=== PATIENT | male | born 1995 | race African-American/Black ===

== ENCOUNTER 2018-06-15 15:44 | Emergency (ER) | payer MEDICAID, OTHER ==
[2018-06-15] MEDS ORDERED: NORMAL SALINE 1000 ML 1,000 ML IV ONE (16:04)
[2018-06-15] MEDS ORDERED: CEFTRIAXONE 1 GM/D5W RTU 1 GM/50 ML RTUPB IV ONE (16:06)
[2018-06-15] MEDS ORDERED: METHYLPREDNISOLONE INJ 125 MG/2 ML SDV IV ONE (16:06)
--- NOTE | 2018-06-15 16:14 | ER Document Report ---
ED Medical Screen (RME) - General Chief Complaint: Sore Throat Stated Complaint: SORE THROAT Time Seen by Provider: 06/15/18 16:03 Primary Care Provider: EVELIA WEI [Primary Care Provider] - Follow up as needed Mode of Arrival: Ambulatory Information source: Patient Notes: 22-year-old prisoner seen in the ED today for severe sore throat with muffled voice swelling to bilateral neck and difficulty swallowing. He states that he had one tonsil punctured by himself a while back due to being swollen and then it had to be removed. He states he has had a sore throat for 5 days. He has accompanied by a deputy. Patient is alert and oriented states his pain is a 5 out of 5 he is on penicillin. I had Dr. Pichardo look at him also. He recommended Solu-Medrol and Rocephin IV as well as the soft tissue neck CT with IV contrast CBC chemistry is all been ordered. Patient has been placed in room 10 and the nurse has been informed that the patient needs Solu-Medrol stat. I have greeted and performed a rapid initial assessment of this patient. A comprehensive ED assessment and evaluation of the patient, analysis of test results and completion of medical decision making process will be conducted by an additional ED providers. - Related Data Allergies/Adverse Reactions: No Known Allergies Allergy (Verified 06/15/18 15:44) Past Medical History - Social History Frequency of alcohol use: None Drug Abuse: None Renal/ Medical History: Denies: Hx Peritoneal Dialysis - Immunizations Immunizations up to date: Yes Hx Diphtheria, Pertussis, Tetanus Vaccination: Yes Physical Exam - Vital signs Vitals: Temp Pulse Resp BP Pulse Ox 99.9 F 79 16 148/89 H 98 06/15/18 15:51 06/15/18 15:51 06/15/18 15:51 06/15/18 15:51 06/15/18 15:51 Course - Vital Signs Vital signs: Temp Pulse Resp BP Pulse Ox 99.9 F 79 16 148/89 H 98 06/15/18 15:51 06/15/18 15:51 06/15/18 15:51 06/15/18 15:51 06/15/18 15:51 Doctor's Discharge - Discharge Referrals: EVELIA WEI [Primary Care Provider] - Follow up as needed
[2018-06-15] MEDS ORDERED: PIPERACILLIN/TAZOBACTAM 3.375 GM VIAL IV ONE (16:27)
[2018-06-15] MEDS ORDERED: DEXAMETHASONE SOD PHOS INJ 10 MG/1 ML VIAL IV ONE (16:27)
--- NOTE | 2018-06-15 16:43 | ER Document Report ---
ED ENT - General Chief Complaint: Sore Throat Stated Complaint: SORE THROAT Time Seen by Provider: 06/15/18 16:03 Primary Care Provider: EVELIA WEI [NO LOCAL MD] - Follow up as needed Mode of Arrival: Ambulatory Information source: Patient Notes: Patient is a 22-year-old male who started to have some sore throat and difficulty swallowing around 5 days ago. Patient is currently in senior living and was prescribed penicillin by the provider at that location. Patient started to have some difficulty speaking and spitting secretions. Temperature 101. No vomiting. Patient denies any neck stiffness. He denies any headache, cough, chest pain, shortness of breath. - HPI Patient complains to provider of: Other - See above Onset: Other - See above Onset/Duration: Gradual Quality of pain: Achy Severity: Mild Pain Level: Denies Location of pain: Throat Associated symptoms: Other - See above Similar symptoms previously: No Recently seen / treated by doctor: No - Related Data Allergies/Adverse Reactions: No Known Allergies Allergy (Verified 06/15/18 15:44) Past Medical History - General Information source: Patient - Social History Smoking Status: Former Smoker Frequency of alcohol use: None Drug Abuse: None Family History: Reviewed & Not Pertinent Patient has suicidal ideation: No Patient has homicidal ideation: No Renal/ Medical History: Denies: Hx Peritoneal Dialysis - Immunizations Immunizations up to date: Yes Hx Diphtheria, Pertussis, Tetanus Vaccination: Yes Review of Systems - Review of Systems Constitutional: Fever EENT: denies: Eye discharge, Nose congestion, Nose discharge Cardiovascular: denies: Chest pain, Palpitations Respiratory: denies: Short of breath Gastrointestinal: denies: Vomiting Skin: denies: Rash -: Yes All other systems reviewed and negative Physical Exam - Vital signs Vitals: Temp Pulse Resp BP Pulse Ox 99.9 F 79 16 148/89 H 98 06/15/18 15:51 06/15/18 15:51 06/15/18 15:51 06/15/18 15:51 06/15/18 15:51 Notes: Reviewed vital signs and nursing note as charted by RN. CONSTITUTIONAL: Alert and oriented and responds appropriately to questions. Patient is sitting up in no acute distress HEAD: Normocephalic; atraumatic EYES: PERRL; Conjunctivae clear, sclerae non-icteric ENT: Patient has obvious hot potato voice. Patient has what appears to be an obvious left-sided peritonsillar abscess with minimal uvular shift to the right NECK: Supple with good range of motion; non-tender; nonfluctuant anterior cervical lymphadenopathy with no induration or erythema present CARD: Regular rate and rhythm; no murmurs; symmetric distal pulses RESP: Normal chest excursion without splinting or tachypnea; breath sounds clear and equal bilaterally ABD/GI: Normal bowel sounds; non-distended; soft, non-tender BACK: The back appears normal and is non-tender to palpation EXT: Normal ROM in all joints; non-tender to palpation; no edema SKIN: No acute lesions noted NEURO: CN 2-12 intact; 5/5 bilateral upper and lower extremity strength with sensation intact to light touch PSYCH: The patient's mood and manner are appropriate. Grooming and personal hygiene are appropriate. Course - Re-evaluation Re-evalutation: 06/15/18 16:41 Given the above history and physical examination, I have ordered basic labs, Decadron, Zosyn, and have consulted ENT. He was very polite and states that he can be down to see the patient in the emergency department. He has asked for the ENT cart which we have provided. I believe the patient is protecting his airway. 06/15/18 17:59 Labs as recorded. Awaiting for ENT to arrive. Steroids and antibiotics have been provided. - Vital Signs Vital signs: Temp Pulse Resp BP Pulse Ox 99.9 F 79 16 148/89 H 98 06/15/18 15:51 06/15/18 15:51 06/15/18 15:51 06/15/18 15:51 06/15/18 15:51 - Laboratory Result Diagrams: 06/15/18 16:33 06/15/18 16:33 Laboratory results interpreted by me: 06/15/18 06/15/18 16:33 16:33 WBC 12.2 H RDW 14.1 H Absolute Neutrophils 8.8 H Total Protein 8.4 H Discharge - Discharge Clinical Impression: Peritonsillar abscess Condition: Good Disposition: HOME, SELF-CARE Additional Instructions: Come back immediately with any increased pain, difficulty breathing or swallowing, facial or neck swelling, or any other acute problems. Please follow-up with ENT for reassessment as we have discussed. Referrals: LOCAL,NO [NO LOCAL MD] - Follow up as needed MISTY MOREJON, [ASSOCIATE] - Follow up as needed
[2018-06-15 16:53] LABS: ABSOLUTE MONOCYTES (AUTO) 1.3 10^3/uL (0.1-1.4); ABSOLUTE NEUT (AUTO) 8.8 10^3/uL (1.7-8.2); BASOPHILS % (AUTO) 0.2 % (0-2); EOSINOPHILS % (AUTO) 0.2 % (0-6); HEMATOCRIT 43.5 % (37.9-51.0); HEMOGLOBIN 14.5 g/dL (13.5-17.0); LYMPHOCYTES % (AUTO) 16.4 % (13-45); MEAN CORPUSCULAR HEMOGLOBIN 27.6 pg (27.0-33.4); MEAN CORPUSCULAR HGB CONC 33.3 g/dL (32.0-36.0); MEAN CORPUSCULAR VOLUME 83 fl (80-97); PLATELET COUNT 185 10^3/uL (150-450); RED BLOOD COUNT 5.25 10^6/uL (4.35-5.55); RED CELL DISTRIBUTION WIDTH 14.1 % (11.5-14.0); SEGMENTED NEUTROPHILS % (AUTO) 72.2 % (42-78); TOTAL CELLS COUNTED % (AUTO) 100 %; WHITE BLOOD COUNT 12.2 10^3/uL (4.0-10.5)
[2018-06-15 17:28] LABS: ALANINE AMINOTRANSFERASE 28 U/L (21-72); ALBUMIN 4.6 g/dL (3.5-5.0); ALKALINE PHOSPHATASE 106 U/L (38-126); ANION GAP 9 (5-19); ASPARTATE AMINO TRANSFERASE 27 U/L (17-59); BILIRUBIN,DIRECT 0.3 mg/dL (0.0-0.4); BILIRUBIN,TOTAL 0.7 mg/dL (0.2-1.3); BLOOD UREA NITROGEN 12 mg/dL (7-20); CALCIUM 9.6 mg/dL (8.4-10.2); CARBON DIOXIDE 30 mmol/L (22-30); CHLORIDE 104 mmol/L (98-107); GLUCOSE 92 mg/dL (75-110); POTASSIUM 4.2 mmol/L (3.6-5.0); SODIUM 143.3 mmol/L (137-145); TOTAL PROTEIN 8.4 g/dL (6.3-8.2)
[2018-06-15] MEDS ORDERED: LIDOCAINE 1%/EPINEPHRINE INJ 20 ML VIAL ONE (20:15)
[2018-06-15] MEDS ORDERED: MORPHINE SULFATE 10 MG/ML INJ IV ONE (20:50)
[2018-06-15 21:28] VITALS: BP 163/98
--- NOTE | 2018-06-19 11:13 | OPERATIVE REPORT E ---
ENT INPATIENT/ER CONSULTATION DICTATION PART-2 NAME: DEVANTE RICHMOND : 1995 AGE: 22Y DATE OF SURGERY: ROOM: SURGEON: MISTY MOREJON D.O. PROCEDURE: The patient was then positioned and prepped for left IT SUPPORT MANAGER incision and drainage in the [facility] ER setting. There was local anesthetic with epinephrine that was injected around the left peritonsillar distribution. Next, an 18 gauge needle was used to aspirate with more than 5 mL of purulence aspirated. At this point there was incision performed in a curvilinear fashion and hemostats were used to mobilize tissue and copious amounts of purulence were released and suctioned. There was approximately 20 mL or more of purulence released. There was adequate hemostasis noted at the end of the procedure. The patient tolerated the procedure well. Once complete, the patient noted that his voice quality had significantly improved and he felt better overall. There were no complications. ASSESSMENT: 1. Left peritonsillar abscess. 2. Sore throat pain. 3. History of acute recurrent tonsillitis. PLAN: The patient care and procedure were all discussed in detail with the emergency room physician who was also going to prescribe Augmentin, Decadron, and Ultram for the patient for outpatient use upon discharge back to the patient's facility with security. It is recommended for the patient to follow up with ENT when he is able to further discuss tonsillectomy, which he is interested in. CONSULT TIME ELEMENT: In face to face time with the patient, 45 minutes. DICTATING PHYSICIAN: MISTY MOREJON D.O. [id number] PHY#: [id number] ID: [id number] JOB#: [id number] ACCT: [id number] cc:MISTY MOREJON D.O. > MTDD
--- NOTE | 2018-06-19 11:13 | CONSULTATION REPORT E ---
ENT INPATIENT/ER CONSULTATION DICTATION PART-1 NAME: DEVANTE RICHMOND : 1995 AGE: 22Y DATE: TO: MISTY MOREJON D.O. FROM: CAMILLE PRATT M.D. Requesting Physician CHIEF COMPLAINT: Worsening sore throat over 1 week with concern for a left peritonsillar abscess. HISTORY OF PRESENT ILLNESS: This is a 22-year-old male who is incarcerated, who was brought to the [facility] Emergency Room for worsening sore throat symptoms over a 1-week time period. The patient is with history of acute recurrent tonsillitis episodes requiring antibiotics over the years. The patient denies chronic tonsillitis/keratosis pharyngeus symptoms over the years. The patient denies history of a prior peritonsillar abscess. The patient notes significant sore throat discomfort, more on the left, over the past week and is with decreased p.o. intake. The patient denies any difficulty breathing, shortness of breath, or dyspnea on exertion. The patient is able to move his head without difficulty. He also notes his voice has become more muffled in quality. The emergency room physician was concerned for a left peritonsillar abscess process and did not feel it was necessary to perform CT neck imaging based on his clinical evaluation, and ENT consulted for definitive management. PAST MEDICAL HISTORY: Same as above. PAST SURGICAL HISTORY: Was unremarkable. MEDICATIONS: The patient received Zosyn and Decadron while in the emergency room setting, otherwise see the ER medication patient list. ALLERGIES: No known drug allergies. SOCIAL HISTORY: The patient uses tobacco, but denies drug use over the years. The patient also drinks alcohol on occasion. REVIEW OF SYSTEMS: ENT: Same as above. GI: Reviewed and noncontributory. PULMONARY: Reviewed and noncontributory. CARDIAC: Reviewed and noncontributory. NEUROLOGY: Reviewed and noncontributory. SKIN: Reviewed and noncontributory. PSYCHOSOCIAL: Reviewed and noncontributory. ENDOCRINE: Reviewed and noncontributory. ALLERGIES/IMMUNOLOGY: Reviewed and noncontributory. PHYSICAL EXAMINATION: VITAL SIGNS: Temperature 99.9 Fahrenheit, respirations 16, blood pressure 148/99, pulse ox was 98/5 on room air. GENERAL APPEARANCE: The patient was seen in the emergency room setting and was noted to be lying on an emergency room bed in an orange jumper as he is currently incarcerated. There was a security systems administrator that was present at all times. The patient was with a yellow handcuff around the left wrist, which was attached to a bed rail at all times. The patient was alert and oriented and in no apparent distress. His voice quality was muffled, but he was still able to talk reasonably well and did not appear to have any difficulty breathing. There was no stridor. HEENT: Head, normocephalic, atraumatic. Eyes, extraocular muscles intact and his conjunctivae appeared unremarkable. Ears, the ear canals were unremarkable and the tympanic membranes were clear with no middle ear effusion. Nose, nasal septal deviation with inferior turbinate hypertrophy noted. Oral cavity, oropharynx was moist and with findings consistent and concerning for a left peritonsillar abscess process. NECK: Supple with no lymphadenopathy noted. The patient has free range of motion without difficulty. HEART: Regular rate and rhythm without murmur. LUNGS: Clear to auscultation bilateral. NEUROLOGIC: Cranial nerves 2 through 12 were grossly intact. LABORATORY: White blood cell count was elevated at 12. ASSESSMENT AND PLAN: The process of peritonsillar abscess incision and drainage was discussed in detail with the patient who voiced an understanding and desired to proceed with this procedure in the emergency room setting. The patient was consented with all of the risks and complications discussed in detail, which include and are not limited to bleeding, scarring, infection, injury to blood vessels and nerves, injury to tissues inside of the mouth and oropharynx. There is possible need to repeat this procedure depending on the size and amount of purulence that is encountered and drained and the extent of the abscess that is present. There is possibility of need for additional medical and/or surgical care. The patient voiced an understanding of all that was discussed, and was in agreement, and consent was obtained. DICTATING PHYSICIAN: MISTY MOREJON D.O. [id number] PHY#: [id number] ID: [id number] JOB#: [id number] ACCT: [id number] cc:MISTY MOREJON D.O. > [facility]ITALMaría
== END 2018-06-15 21:41 | disposition home or self-care (01) ==
LOC: ER 15:44
DX: J36 Peritonsillar abscess (principal); R50.9 Fever, unspecified
CPT/HCPCS: 99283; 96375; 96365; 96366; 36415; 85025; 80053; 42700; J3490; J2270; J7030; J1100; J2543